=== PATIENT | female | born 1955 | race Caucasian/White ===

== ENCOUNTER 2016-03-28 14:09 | Emergency (ER) | payer SELFPAY ==
[~2016-03-28] VITALS: Wt 90.9 kg
[2016-03-28] MEDS ORDERED: HYDR-902 PO (16:04)
[2016-03-28] MEDS ORDERED: ACYC800T57 PO (16:04)
--- NOTE | 2016-03-28 19:13 | ERD ---
ER Documentation Chief Complaint Date/Time DATE: 03/28/16 TIME: 19:12 Chief Complaint r side rash for the past 3 days. red and patchy HPI Patient is a 60-year-old female with hypertension who presents with a rash. Please note that a broom bundler was used. The patient thinks that she has a spider or a bug bite to her right lower back. She has had a rash for the past 3 days that is gotten worse. She feels like her whole body is weak. She does admit it is painful. She has had no treatment as of yet. She does have a primary doctor. She had chickenpox as a child. ROS All systems reviewed and are negative except as per history of present illness. Medications Home Meds Active Scripts Hydrocodone/Acetaminophen ([place] 10-325 Tablet) 1 Each Tablet, 1 TAB PO Q6H Y for PAIN, #16 TAB Prov:JERED VASQUEZ MD 03/28/16 Acyclovir* (Zovirax*) 800 Mg Tablet, 800 MG PO 5 TIMES DAILY for 7 Days, TAB Prov:JERED VASQUEZ MD 03/28/16 PMhx/Soc Medical and Surgical Hx: pt denies Medical Hx Hx Alcohol Use: No Hx Substance Use: No Hx Tobacco Use: No Smoking Status: Never smoker FmHx Family History: No diabetes Physical Exam Vitals Vital Signs Date Time Temp Pulse Resp B/P Pulse Ox O2 Delivery O2 Flow Rate FiO2 03/28/16 14:23 98.5 85 20 219/100 98 Physical Exam Const: No acute distress Head: Atraumatic Eyes: Normal Conjunctiva ENT: Normal External Ears, Nose and Mouth. Neck: Full range of motion..~ No meningismus. Resp: Clear to auscultation bilaterally Cardio: Regular rate and rhythm, no murmurs Abd: Soft, non tender, non distended. Normal bowel sounds Skin: Vesicular rash to the lower right back in a dermatomal distribution consistent with shingles Back: No midline or flank tenderness Ext: No cyanosis, or edema Neur: Awake and alert Psych: Normal Mood and Affect Procedures/MDM Smoking Cessation Therapy: Pt. was lectured for greater than 3 minutes on the health risks of continued smoking and the benefits of cessation. Patient is a 60-year-old female who presents with shingles of the right lower back. The patient will be given acyclovir as well as [place]. She can follow-up with her primary doctor within 24-48 hours. She can return for any worsening symptoms. At this point I believe outpatient management is appropriate as this does not appear to be disseminated shingles. The patient could return for any worsening symptoms. Departure Diagnosis: Primary Impression: Shingles Herpes zoster complications: without complications Qualified Code: B02.9 - Herpes zoster without complication Additional Impression: Rash Condition: Fair Patient Instructions: Shingles (Herpes Zoster) Referrals: Your doctor Additional Instructions: Call your primary care doctor TOMORROW for an appointment during the next 1 WEEK.Tell the medical secretary receptionist that you were referred from this facility.See the doctor sooner or return here if your condition worsens before your appointment time. JERED VASQUEZ MD Mar 28, 2016 19:13
== END 2016-03-28 17:00 | disposition home or self-care (01) ==
LOC: E/R 14:09
DX: B02.9 Zoster without complications (principal); I10 Essential (primary) hypertension
CPT/HCPCS: 99284

== ENCOUNTER 2016-06-19 21:51 | Emergency (ER) | payer BC ==
[~2016-06-19] VITALS: Ht 152.4 cm; Wt 86.5 kg
[~2016-06-19 21:51] MED LIST: ACYC800T57 PO; HYDR-902 PO
[2016-06-19 22:42] VITALS: Ht 152.4 cm; Wt 86.5 kg
--- NOTE | 2016-06-19 22:54 | ERA ---
ER Documentation Chief Complaint Date/Time DATE: 06/19/16 TIME: 22:54 Chief Complaint Facial numbness Right side. No weakness on the extremities HTN HPI The patient is a 60-year-old female, presenting with acute right facial numbness , inability to close her right eye and watery right eye since 12 PM yesterday. She denies any headache, neck pain, chest pain, dyspnea, abdominal pain, vomiting, dysuria, diarrhea. She smokes half a pack a day, denies drinking Past medical history: Hypertension, dyslipidemia Past surgical history: None ROS All systems reviewed and are negative except as per history of present illness. Medications Home Meds Active Scripts Prednisone* (Prednisone*) 20 Mg Tab, 60 MG PO DAILY for 7 Days, TAB Prov:GINNY IVAN MD 06/20/16 Mineral Oil/Lanolin Oil (Lacri-Lube) 3.5 Gm Oint, 1 APPLIC RIGHT EYE NEEDED for DRY EYES for 7 Days, #1 EA Prov:GINNY IVAN MD 06/20/16 Acyclovir* (Zovirax*) 800 Mg Tablet, 800 MG PO 5 TIMES DAILY for 7 Days, TAB Prov:GINNY IVAN MD 06/20/16 Hydrocodone/Acetaminophen ([place] 10-325 Tablet) 1 Each Tablet, 1 TAB PO Q6H Y for PAIN, #16 TAB Prov:JERED VASQUEZ MD 03/28/16 Acyclovir* (Zovirax*) 800 Mg Tablet, 800 MG PO 5 TIMES DAILY for 7 Days, TAB Prov:JERED VASQUEZ MD 03/28/16 Allergies Allergies: Coded Allergies: No Known Allergy (Unverified , 06/19/16) PMhx/Soc Hx Alcohol Use: No Hx Substance Use: No Hx Tobacco Use: No Physical Exam Vitals Vital Signs Date Time Temp Pulse Resp B/P Pulse Ox O2 Delivery O2 Flow Rate FiO2 06/20/16 00:59 163/85 06/20/16 00:21 98.2 77 22 163/102 98 Room Air 06/19/16 23:02 81 17 177/96 96 Room Air 06/19/16 22:42 98.4 84 20 200/101 96 Physical Exam Const: No acute distress. Head: Atraumatic. Eyes: Normal Conjunctiva. ENT: Normal External Ears, Nose and Mouth. Right frontal muscle weakness. Unable to close her right eye completely Neck: Full range of motion. No meningismus. Resp: Clear to auscultation bilaterally. Cardio: Regular rate and rhythm, no murmurs. Abd: Soft, non distended, normal bowel sounds, non tender. Skin: No petechiae or rashes. Back: No midline or flank tenderness. Ext: No cyanosis, or edema. Neur: Awake and alert. No focal deficit, right facial droop Psych: Normal Mood and Affect. Procedures/MDM [place] [address] Radiology Main Line: [phone] DIAGNOSTIC IMAGING REPORT Patient: TEZ HOLLAND : 1955 Age: 60 Sex: F MR #: [id number] DOS: 06/19/16 2259 Ordering MD: GINNY IVAN MD Location: E/R Room/Bed: PROCEDURE: CT Brain without contrast. CLINICAL INDICATION: Headache TECHNIQUE: A multiplanar CT of the brain was performed on a CT scanner utilizing axial imaging from the skull base through the vertex without IV contrast. The CTDIvol is 40 5.0 mGy and the DLP is 720.23 mGycm. One or more of the following dose reduction techniques were utilized: Automated exposure control, adjustment of the mA and/or kV according to patient size, use of iterative reconstruction technique. COMPARISON: None FINDINGS: No evidence of intracranial hemorrhage or abnormal extra-axial fluid collection. The brain parenchyma is normal attenuation morphology with preservation of metz white differentiation and age appropriate size of the ventricles and subarachnoid spaces. The basal cisterns, posterior fossa contents, brainstem, craniocervical junction , orbits, pituitary axis, paranasal sinuses, mastoid air cells, and calvarium are unremarkable. IMPRESSION: 1. No intracranial hemorrhage or acute intracranial abnormality. RPTAT:AAJJ Physician Jean Date Time Electronically viewed and signed by Physician Jean on 06/20/2016 00:11 DOMITILA/ CC: GINNY IVAN MD MEDICAL MAKING DECISION: The patient is a 60-year-old female, presenting with acute [place] palsy, acute accelerated hypertension. Her blood pressure improved without intervention. The differential diagnoses considered include but are not limited to subarachnoid hemorrhage, occult trauma, CVA, meningitis, encephalitis, hypertension, tension, migraine, cluster, narcotic withdrawal, cervical spine disease. Departure Diagnosis: Primary Impression: [place] palsy Additional Impression: Accelerated hypertension Condition: Good Comments She was discharged with acyclovir, Lacri-Lube, prednisone I discussed the findings with the patient. I advised the patient to follow-up with the primary physician in about 1-2 days, sooner if needed and return if any concern. I advised her to tappe her right eye shut during sleeping to prevent corneal ulceration GINNY IVAN MD Jun 19, 2016 22:54
--- NOTE | 2016-06-20 00:11 | RADRPT ---
PROCEDURE: CT Brain without contrast. CLINICAL INDICATION: Headache TECHNIQUE: A multiplanar CT of the brain was performed on a CT scanner utilizing axial imaging fro m the skull base through the vertex without IV contrast. The CTDIvol is 40 5.0 mGy and the DLP is 7 20.23 mGycm. One or more of the following dose reduction techniques were utilized: Automated expos ure control, adjustment of the mA and/or kV according to patient size, use of iterative reconstructi on technique. COMPARISON: None FINDINGS: No evidence of intracranial hemorrhage or abnormal extra-axial fluid collection. The brain parenchyma is normal attenuation morphology with preservation of metz white differentiatio n and age appropriate size of the ventricles and subarachnoid spaces. The basal cisterns, posterior fossa contents, brainstem, craniocervical junction, orbits, pituitary axis, paranasal sinuses, mastoid air cells, and calvarium are unremarkable. IMPRESSION: 1. No intracranial hemorrhage or acute intracranial abnormality. RPTAT:AAJJ Physician Jean Date Time Electronically viewed and signed by Physician Jean on 06/20/2016 00:11 DOMITILA/
[2016-06-20] MEDS ORDERED: PRED20TA PO (01:02)
[2016-06-20] MEDS ORDERED: ACYC800T57 PO (01:02)
[2016-06-20] MEDS ORDERED: LACR35O RIGHT EYE (01:02)
[2016-06-20 01:15] VITALS: BP 155/88; PULSE 76; RESP 16; TEMP 98.9
== END 2016-06-20 01:19 | disposition home or self-care (01) ==
LOC: E/R 21:51
DX: G51.0 Bell's palsy (principal); I10 Essential (primary) hypertension
CPT/HCPCS: 70450; Z7502